=== PATIENT | female | born 2000 | race Caucasian/White ===

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

== ENCOUNTER 2021-11-11 03:02 | Emergency (ER) | payer OTHER, SELFPAY ==
--- NOTE | 2021-11-11 | ECG_ITS ---
Test Reason : CHEST PAIN Blood Pressure : / mmHG Vent. Rate : 088 BPM Atrial Rate : 088 BPM P-R Int : 094 ms QRS Dur : 062 ms QT Int : 368 ms P-R-T Axes : 028 048 015 degrees QTc Int : 445 ms Sinus rhythm with short [place] Nonspecific ST and T wave abnormality No previous ECGs available Referred By: Generic ED Physician Electronically Signed By:MIO WATERS
--- NOTE | ~2021-11-11 | XR_ITS ---
EXAMINATION: XR CHEST CLINICAL INFORMATION: Cough. COMPARISON: None TECHNIQUE: Frontal view of the chest was obtained. FINDINGS: Normal appearance of the cardiomediastinal structures. No effusions or pneumothoraces. No focal pulmonary consolidation. Normal pattern of pulmonary vasculature. XR/XR chest 1V IMPRESSION: No acute cardiopulmonary abnormalities. Lungs clear.
[2021-11-11 03:36] VITALS: BP 122/84; PULSE 89; RESP 18; TEMP 36.7; O2SAT 98; BMI 21.2
--- NOTE | 2021-11-11 03:46 | ED.URI ---
HPI - URI/Sore Throat General Chief Complaint: Upper Respiratory Symptoms Stated Complaint: chest pain, cold Time Seen by Provider: 11/11/21 03:46 Source: patient Mode of arrival: ambulatory History of Present Illness HPI Narrative: Patient coughing for last 24 hours notice pain in her mid chest her prior to arrival no shortness of breath has mucopurulent expectoration no fever no chills Related Data Previous Rx's Medication Instructions Recorded azithromycin 250 mg tablet 250 mg PO DAILY 4 days #4 tabs 11/11/21 (Zithromax) benzonatate 200 mg capsule 200 mg PO TID PRN Cough #20 caps 11/11/21 Allergies Allergy/AdvReac Type Severity Reaction Status Date / Time Penicillins [PENICILLINS] Allergy Intermediate HIVES Verified 11/11/21 03:30 Review of Systems Review of Systems: Yes all other systems are reviewed and are negative [facility] Social History Social History Advance Directives: No Advance Directives Information Provided: No Physical Exam Vital Signs: Vital Signs: Last Vital Signs Temp 98.1 F 11/11/21 03:36 Pulse 89 11/11/21 03:36 Resp 18 11/11/21 03:36 BP 122/84 11/11/21 03:36 Pulse Ox 98 11/11/21 03:36 O2 Del Method 11/11/21 03:36 BMI result Body Mass Index 21.2 Appearance: Alert. Oriented X3. No acute distress. Eyes: PERRLA, No Nystagmus ENT: Pharynx normal. Oral Mucosa moist Neck: Normal inspection. Neck supple. CVS: Normal heart rate and rhythm. Pulses normal. Respiratory: No respiratory distress. Chest wall tenderness++ Equal air entry bilateral, no wheezing/rales/rhonchi Abdomen: Soft and nontender. Bowel sounds are present, no mass palpable, no CVA tenderness Skin: Skin warm and dry. Normal skin color. Normal skin turgor. Extremities: No lower extremity edema. No calf tenderness Neuro: Oriented X 3. No motor deficit. MDM - URI/Sore Throat Differential Diagnosis Differential diagnosis: Likely upper respiratory infection Medical Records Medical records narrative: Patient chest x-ray negative symptoms with bronchitis discharge patient home on Zithromax Lab Data Attestation: I reviewed the patient's lab results. Labs: Lab Results 11/11/21 11/11/21 Range/Units 03:30 03:30 COVID-19 (GENNARO) Negative (Negative) COVID-19 Clin Com See Note Influenza Type A (AMEYA) Negative (Negative) Influenza Type B (AMEYA) Negative (Negative) Influenza A & B Note See Note ECG Data Attestation: I personally reviewed and interpreted this ECG as follows: Interpretation: Numbness and rhythm heart rate 88 beats per minute , normal intervals normal axis no acute ischemia Discharge Plan Discharge Clinical Impression: Bronchitis Patient Disposition: Home, Self-Care Instructions: Acute Bronchitis (ED) Additional Instructions: Stop smoking Antibiotic and cough drops as otherwise Prescriptions: New azithromycin [Zithromax] 250 mg tablet 250 mg PO DAILY 4 Days Qty: 4 0RF Rx Instructions: start on day 2 of therapy benzonatate 200 mg capsule 200 mg PO TID PRN (Reason: Cough) Qty: 20 0RF Stand Alone Forms: Work/School Release
[2021-11-11 03:50] LABS: COVID-19 Test Negative (Negative); IDNOW Serial# 16C4AD1C; Influenza A Negative (Negative); Influenza B2 Negative (Negative)
[2021-11-11] MEDS: Azithromycin 500 MG TABLET PO (04:38)
[2021-11-11] MEDS: Benzonatate 100 MG CAPSULE 200 MG PO (04:38)
[2021-11-11] MEDS: Ibuprofen 600 MG TABLET PO (04:41)
[2021-11-11 04:58] VITALS: BP 124/72; PULSE 89; RESP 18; TEMP 37.2; O2SAT 97
== END 2021-11-11 05:00 | disposition home or self-care (01) ==
PROVIDERS: Emergency Provider Internal Medicine
DX: J40 Bronchitis, not specified as acute or chronic (principal); R07.89 Other chest pain; Z20.822 Contact with and (suspected) exposure to COVID-19
CPT/HCPCS: 71045; 87502; 87635; 93005; 99284

== ENCOUNTER → 2022-12-18 10:13 | Outpatient (BNVA) | payer SELFPAY | PROVIDERS: Visit Provider Physician Assistant Medical ==